=== PATIENT | male | born 2005 | race Hispanic/Latino ===

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

== ENCOUNTER 2024-11-28 11:56 | Emergency (ER) | payer OTHER, SELFPAY ==
--- NOTE | ~2024-11-28 | XR_ITS ---
XR ankle RT min 3V, XR foot RT min 3V 11/28/2024 12:48 Indication: Right foot and ankle pain after basketball injury Procedure: 4 views right ankle and 4 views right foot Comparison: No prior studies for comparison. Findings: There is anatomic alignment. No fracture, subluxation or dislocation. No soft tissue abnormality. No foreign bodies. Impression: 1: No acute bone or joint abnormality. Reviewed, dictated and finalized at location O. Impression: 1: No acute bone or joint abnormality. Impression: 1: No acute bone or joint abnormality.
[2024-11-28 12:24] VITALS: BP 125/60; PULSE 72; RESP 18; TEMP 36.6; O2SAT 100
--- NOTE | 2024-11-28 13:26 | ED.GENADULT ---
HPI - General Adult General Chief complaint: Extremity Injury, Lower Stated complaint: right foot/ankle injury Source: patient Mode of arrival: ambulatory Limitations: no limitations History of Present Illness HPI narrative: Patient presents for evaluation of right foot and ankle pain. Symptom onset yesterday. He was brought basketball and twisted his ankle when coming down from jumping. He now has 10/10 pain in the right ankle and foot. He states the pain is sharp. Has some numbness and tingling in the right ankle. He tried taking ibuprofen 800 mg for his symptoms for his symptoms. Related Data Home Medications ?Medication ?Instructions ?Recorded ?Confirmed ?Last Taken ?Type clobazam 10 mg tablet mg 05/25/22 Unknown History clonazepam 1 mg disintegrating mg 05/25/22 Unknown History tablet zonisamide 100 mg capsule mg PO 11/28/24 Unknown History Allergies Allergy/AdvReac Type Severity Reaction Status Date / Time No Known Allergies Allergy Verified 11/28/24 12:36 Review of Systems Review of Systems: CONSTITUTIONAL: Denies fever, chills, or sweats. EYES: Denies visual changes, redness, or discharge. ENT: Denies rhinorrhea, congestion, sore throat, or otalgia. CARDIOVASCULAR: Denies chest pain, palpitations, or edema. RESPIRATORY: Denies cough or dyspnea. GASTROINTESTINAL: Denies abdominal pain, nausea, vomiting, or diarrhea. GENITOURINARY: Denies dysuria or hematuria. SKIN: Denies rash or itching. MUSCULOSKELETAL: Reports pain and swelling in the right foot and ankle NEUROLOGIC: Reports numbness and tingling in the right ankle PSYCHIATRIC: Denies anxiety or depression. [facility] Past Medical History Medical History No pertinent past medical history Surgical History Surgical History No pertinent past surgical history Family History Family History Mother Family history non-contributory Social History Social History Gender identity (if verbalized by the patient): Male Spiritual care concerns: No Exam Narrative: GENERAL: Well-appearing, well-nourished, and in no acute distress. HEAD: Normocephalic, atraumatic. EYES: PERRLA and EOMI. ENT: Nares clear, no rhinorrhea or epistaxis. Mucous membranes moist. Oropharynx without tonsillar hypertrophy exudate or other lesions. Bilateral TMs pearly liu nonbulging NECK: Supple. No adenopathy or masses. No carotid bruits or JVD CHEST: Clear to auscultation. No respiratory distress. No wheezes rales or rhonchi HEART: Regular rate and rhythm. No murmur heard. Normal peripheral pulses. ABDOMEN: Soft, nontender, nondistended, normal active bowel sounds. EXTREMITIES: There is swelling noted over the right lateral ankle. Decreased dorsi and plantar flexion secondary to pain. There is tenderness over the lateral aspect of the right ankle, in dorsal aspect of proximal right foot and throughout the right great toe SKIN: Warm, dry, no rash. NEURO: No focal deficits. Alert and oriented x3. PSYCH: Normal mood and affect. Course Course Emergency Course: Is a 19-year-old male who presented for evaluation of right foot and ankle pain/swelling. X-rays negative for fracture. Exam consistent with sprain. Provided with Delvis wrap and crutches. Recommended he purchase an Aircast boot. NSAIDs for pain. Advised on RICE therapy. Follow-up with primary provider. Go to the ER for worsening symptoms. Patient in agreement with plan of care. Level of Care: Express Care Visit Vital Signs Vital signs: Vital Signs Temperature 36.6 C 11/28/24 12:24 Pulse Rate 72 11/28/24 12:24 Respiratory Rate 18 11/28/24 12:24 Blood Pressure 125/60 11/28/24 12:24 Pulse Oximetry 100 11/28/24 12:24 Oxygen Delivery Room Air 11/28/24 12:24 Temperature 36.6 C 11/28/24 12:24 Pulse Rate 72 11/28/24 12:24 Respiratory Rate 18 11/28/24 12:24 Blood Pressure 125/60 11/28/24 12:24 Pulse Oximetry 100 11/28/24 12:24 Oxygen Delivery Room Air 11/28/24 12:24 Medical Decision Making Vital Signs Vital Signs: Vital Signs Temperature 36.6 C 11/28/24 12:24 Pulse Rate 72 11/28/24 12:24 Respiratory Rate 18 11/28/24 12:24 Blood Pressure 125/60 11/28/24 12:24 Pulse Oximetry 100 11/28/24 12:24 Oxygen Delivery Room Air 11/28/24 12:24 Temperature 36.6 C 11/28/24 12:24 Pulse Rate 72 11/28/24 12:24 Respiratory Rate 18 11/28/24 12:24 Blood Pressure 125/60 11/28/24 12:24 Pulse Oximetry 100 11/28/24 12:24 Oxygen Delivery Room Air 11/28/24 12:24 Imaging Data Radiologist's impression: XR ankle RT min 3V, XR foot RT min 3V 11/28/2024 12:48 Indication: Right foot and ankle pain after basketball injury Procedure: 4 views right ankle and 4 views right foot Comparison: No prior studies for comparison. Findings: There is anatomic alignment. No fracture, subluxation or dislocation. No soft tissue abnormality. No foreign bodies. Impression: 1: No acute bone or joint abnormality. XR ankle RT min 3V, XR foot RT min 3V 11/28/2024 12:48 Indication: Right foot and ankle pain after basketball injury Procedure: 4 views right ankle and 4 views right foot Comparison: No prior studies for comparison. Findings: There is anatomic alignment. No fracture, subluxation or dislocation. No soft tissue abnormality. No foreign bodies. Impression: 1: No acute bone or joint abnormality. Discharge Plan Discharge Clinical Impression: Right ankle sprain Instructions: Antibiotic Form, Ankle Sprain (ED) Patient Language: Bengali Prescriptions: New ibuprofen 800 mg tablet 800 mg PO TID PRN (Reason: pain) Qty: 30 0RF No Action clonazepam 1 mg tablet,disintegrating clobazam 10 mg tablet zonisamide 100 mg capsule PO Follow-up/Referrals: Scotty Schmid MD [Physician, Family Practice] Time of Disposition: 13:09
--- OUTSIDE RECORDS SUMMARY | 2024-11-28 14:46 | XMS_ITS | Clinical Summary ---
Author Organization [facility] Address [address] [place] [address] Care Team Providers Care Interactive Developer Name Role Phone Koffi Evans MD Primary Care Provider + [phone] Source Comments [facility],non-owned Affiliates and Associated Physician Practices is amultiple site organization consisting of ambulatory clinics and hospital sitesin [place], [place], [place] and [place]. This disclosure is being madepursuant to the Care Everywhere program and may not contain all information available regarding this patient. Last updated 17.[facility] Allergies No known active allergies Medications * Be aware that medications may not be up to date on this document. Alwaysverify current medications with the patient. diazePAM (Valtoco) 5 MG/0.1ML nasal spray Kiefer 0.1 mL into the nose as needed for Seizures (lasting greater than 5 minutes) 1 Each 1 12/19/2021 Active clonazePAM, disintegrating, (KlonoPIN Wafer) 1 MG tablet Take 1 (one) tablet by mouth 2 times daily as needed (for 2 seizures in 24 hours) 6 tablet 02/16/2022 Active cloBAZam (Onfi) 10 MG tablet Take 5 mg by mouth in the morning & 10 mg in the evening 45 tablet 09/15/2022 Active Active Problems Problem Noted Date Diagnosed Date Fracture of radial neck 02/23/2014 Closed fracture of ulna Atypical absence epilepsy Generalized convulsive epilepsy Social History Tobacco Use Types Packs/Day Years Used Date Smoking Tobacco: Never Passive Smoke Exposure: Never Smokeless Tobacco: Never Tobacco Cessation:Counseling Given: Not Answered Alcohol Use Standard Drinks/Week Comments No 0 (1 standard drink = 0.6 oz pur e alcohol) AUDIT-C Answer Date Recorded Q1: How often do you have a drink containing alcohol? Never 01/29/2022 Q2: How many drinks containi ng alcohol do you have on a typical day when you are drinking? Patient does not drink Q3: How often do you have si x or more drinks on one occasion? 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 Gender Identity Not on file Sexual Orientation Not on file Last Filed Vital Signs Vital Sign Reading Time Taken Comments Blood Pressure 130/58 02/16/2022 10:50 AM WIRE MESH GATE ASSEMBLER Pulse 82 01/29/2022 10:04 PM WIRE MESH GATE ASSEMBLER Temperature 36.8 C (98.3 F) 01/29/2022 10:04 PM WIRE MESH GATE ASSEMBLER Respiratory Rate 16 01/29/2022 10:04 PM WIRE MESH GATE ASSEMBLER Oxygen Saturation 97% 01/29/2022 10:04 PM WIRE MESH GATE ASSEMBLER Inhaled Oxygen Concentration - - Weight 92.6 kg (204 lb 2.3 oz) 02/16/2022 10:50 AM WIRE MESH GATE ASSEMBLER Height 178.7 cm (5' 10.35) 02/16/2022 10:50 AM WIRE MESH GATE ASSEMBLER Body Mass Index 29 02/16/2022 10:50 AM WIRE MESH GATE ASSEMBLER Plan of Treatment Health Maintenance Due Date Last Done Comments HIV SCREENING 2018 HPV VACCINE (1 - Male 3-dose series) 2018 MENINGOCOCCAL (Group B) VACCINE SHARED DECISION-MAKING (1 of 2 - Standard) 2019 HEPATITIS C SCREENING 03/30/2021 DTAP/TDAP/TD VACCINES (1 - Tdap) 2022 HEPATITIS B VACCINE (1 of 3 - 19+ 3-dose series) 2022 DEPRESSION SCREENING 02/09/2024 COVID-19 VACCINE (3 2024-2 6 season) 2024 08/09/2020, 07/11/2020 INFLUENZA VACCINE (#1) 2024 ZOSTER VACCINE (1 of 2) 2053 HIB VACCINE Aged Out No longer eligi ble based on patient's age to complete this topic MENINGOCOCCAL GROUPS A/C/Y/W VACCINE Aged Out No longer eligible b ased on patient's age to complete this topic PNEUMOCOCCAL VACCINE Aged Out No long er eligible based on patient's age to complete this topic Insurance [facility] Care Teams Interactive Developer Relationship Specialty Start Date End Date Koffi Evans MD [address] [place] [id number] PCP - General 02/13/22
--- OUTSIDE RECORDS SUMMARY | 2024-11-28 14:47 | XMS_ITS | Encounter Summary ---
Author Organization [facility] Address [address] [place] [address] Care Team Providers Care Public Service Representative Name Role Phone PeterVishalfrancois CUEVAS Primary Care Provider [phone] Encounter Details Date Type Department Care Team (Late st Contact Info) Description 10/12/2024 Results Follow-Up [facility] at [address] [place] [address] Lauren Minaya MD [address] [place] [address] [address] DOU[address], [facility] [address] [place] [address] Hepatitis C antibody Blood Social History Tobacco Use Types Packs/Day Years Used Date Smoking Tobacco: Every Day Vaping Smokeless Tobacco: Never Comments:Smokes marijuana Alcohol Use Standard Drinks/Week Comments Yes 0 (1 standard drink = 0.6 oz pur e alcohol) PHQ-2 Answer Date Recorded PHQ-2 Total Score (If total score is 3 or more points, staff should administer the PHQ-9) 0 10/10/2024 AUDIT-C Answer Date Recorded Q1: How often do you have a drink containing alc ohol? Monthly or less 10/10/2024 Q2: How many drinks containi ng alcohol do you have on a typical day when you are drinking? 3 or 4 10/10/2024 Q3: How often do you have si x or more drinks on one occasion? Never 10/10/2024 Hunger Vital Sign Answer Date Recorded Within the past 12 months, y ou worried that your food would run out before you got the money to buy more. Never true 09/27/19 25 Within the past 12 months, t he food you bought just didn't last and you didn't have money to get more. Never true 09/26/2024 Personal Safety Answer Date Recorded Have you ever been in or are you currently in a harmful physical or emotional relationship or is someone making you feel afraid or unsafe? 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 Called back and the person on the other end sat on the phone until I voiced that this is the doctors office looking for [place] and then the pt's grandpa laughed and stated oh that's who it is and I proceeded to give Terry the pt's results and ended the call. * Telephone Encounter - Mehreen Smith MA - 10/12/2024 8:28 AM CDT Unable to call pt due to number not being available, will f/u at a later time. documented in this encounter Plan of Treatment Not on file documented as of this encounter Visit Diagnoses Not on filedocumented in this encounter Care Teams Public Service Representative Relationship Specialty Start Date End Date Josephine Green NP PCP - General Family Medicine 09/25/22 documented as of this encounter
--- OUTSIDE RECORDS SUMMARY | 2024-11-28 14:48 | XMS_ITS | Clinical Summary ---
Author Organization [facility] Address [address] [place] [address] Phone Care Team Providers Care Clipper Operator Name Role Phone Josephine Prescott Primary Care Provider + [phone] Allergies No known active allergies Medications diazePAM 20 MG Gel 20 mg by Rectal route. 08/17/2017 Active cloBAZam (ONFI) 10 MG Tablet Take 5 mg by mouth 2 times daily. 12/19/2021 Active naproxen (NAPROSYN) 500 MG Tablet Take 1 Tablet by mouth 2 times daily as needed for Moderate or more severe pain. 20 Tablet 01/01/2023 Active Active Problems No known active problems Social History Tobacco Use Types Packs/Day Years Used Date Smoking Tobacco: Never Smokeless Tobacco: Never Tobacco Cessation:Counseling Given: Not Answered Sex and Gender Information Value Date Recorded Sex Assigned at Not on file Legal Sex Male 5:42 PM CDT Gender Identity Not on file Sexual Orientation Not on file Last Filed Vital Signs Vital Sign Reading Time Taken Comments Blood Pressure 131/70 01/01/2023 3:23 PM PROFESSIONAL NURSING TUTOR Pulse 97 01/01/2023 3:23 PM PROFESSIONAL NURSING TUTOR Temperature 37.1 C (98.7 F) 01/01/2023 3:23 PM PROFESSIONAL NURSING TUTOR Respiratory Rate 16 01/01/2023 5:38 PM PROFESSIONAL NURSING TUTOR Oxygen Saturation 96% 01/01/2023 3:23 PM PROFESSIONAL NURSING TUTOR Inhaled Oxygen Concentration - - Weight 101.7 kg (224 lb 3.3 oz) 01/01/2023 3:23 PM PROFESSIONAL NURSING TUTOR Height 180.3 cm (5' 11) 01/01/2023 3:23 PM PROFESSIONAL NURSING TUTOR Body Mass Index 31.27 01/01/2023 3:23 PM PROFESSIONAL NURSING TUTOR Plan of Treatment Health Maintenance Due Date Last Done Comments Hepatitis C Virus (HCV) Screening 2003 Meningococcal B Immunization (1 of 2 - Standard) 2019 Influenza Immunization (#1) 2024 SARS-COV-2 Immunization (3 - 2024- season) 2024 08/09/2020, 07/11/2020 Respiratory Syncytial Virus (RSV) Immunization (Adult) (1 - 1-dose 75+ series) 2078 Hepatitis B Immunization Completed 006, 02/03/2006, 2003, Additional history exists Hepatitis A Immunization Discontinued 10/20/2006, 01/09 Measles Mumps Rubella (MMR) Immunization Discontinued 08/23/2007, 02/03/2006, 02/03/2006, Additional history exists Pneumococcal Immunization Combined Completed 08/23/2007, 08/23/2007, 02/03/2006, Additional history exists Polio (IPV) Immunization Discontinued 008, 02/03/2006, 2003, Additional history exists Varicella Immunization Discontinued 8, 02/03/2006, 02/03/2006, Additional history exists DTaP/Tdap/Td Immunization Discontinued 2013, 08/23/2007, 02/03/2006, Additional history exists TdaP Immunization Completed 06/15/2013 Meningococcal Immunization (ACWY) Aged Out 10/02/2014 No longer eligible based on patient's age to complete this topic Human Papillomavirus (HPV) Immunization Completed 09/28/2017, 10/16/2014 Rotavirus Immunization Aged Out No lo nger eligible based on patient's age to complete this topic Insurance MEDICAID [facility] MEDICAID [facility] [employer] Care Teams Clipper Operator Relationship Specialty Start Date End Date Josephine Prescott, [facility] [address] [place] [address] PCP - General Hematology 01/01/23
--- OUTSIDE RECORDS SUMMARY | 2024-11-28 14:48 | XMS_ITS | Clinical Summary ---
Author Organization [facility] Address [address] [place] [address] Care Team Providers Care Trucker Hand Name Role Phone PeterJosephine FAITH Primary Care Provider [phone] Allergies No known active allergies Medications diazePAM 5 mg/spray (0.1 mL) spray,non-aerosol Administer 5 mg into one nostril as needed (seizure longer than 5 minutes or 2 seizures back to back) Take if having a seizure longer than 5 minutes or 2 seizures back to back. 2 each Active ondansetron ODT (ZOFRAN-ODT) 4 mg disintegrating tabletIndications :Vomiting, unspecified vomiting type, unspecified whether nausea present Take 1 tablet (4 mg total) by mouth every 8 (eight) hours as needed for nausea or vomiting 20 tablet Active azelastine (ASTELIN) 137 mcg (0.1 %) nasal sprayIndications: Acute URI Administer 1 spray into each nostril 2 (two) times a day Use in each nostril as directed 30 mL 024 Active zonisamide (ZONEGRAN) 100 mg capsuleIndication s:Partial Epilepsy Treatment Adjunct Take 2 capsules (200 mg total) by mouth 2 (two) times a day 120 capsule 11 024 2024 Active cloBAZam (ONFI) 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 Take 2.5 tablets (25 mg total) by mouth nightly 75 tablet 3 025 2024 Discontinued(D uplicate order) Active Problems Problem Noted Date Diagnosed Date Seizure 03/09/2023 Nonintractable epilepsy without status epileptic us 09/25/2022 Assessment & Plan (10/10/2024 4:00 PM CDT): Chonic condition Follows neurology Last seizure episode 09/10/2024 Currently on Onfi and zonisamide Plan Discussed need to contact community mental health social worker to help with disability forms Follow up with Neurology Assessment & Plan (02/15/2023 10:31 AM HOME HEALTH NURSE): Stable; last seizure approx 01/18 Girlfriend stated that it was mild Following with Neurology; going well; next appt April Continue Clobazam 10 mg bid and Diazepam as needed Follow up in September Assessment & Plan (11/13/2022 10:08 AM CDT): Patient continues to have seizures; most recent this past Wednesday Typical recovery within 10-15 minutes after seizure Referral for Dr. MIL santoro as they could not get into the OR neurologist until December Continue clobazam 20 mg daily and diazepam as needed Assessment & Plan (10/15/2022 4:07 PM CDT): Patient continues to have seizures; 1 that occurred today prior to presentation; symptoms consistent with seizure with blackout phase, as well as postictal phase Usually recovers within 10 50 minutes after seizure Symptoms worse with lack of sleep and high stress Patient follows with Neurology; however needs new referral given recently aged out of pediatric Neurology Referral to Neurology placed Increase clonazepam to 20 mg daily; continue diazepam p.r.n. Right foot sprain, initial encounter 08/21/2019 Sprain of anterior talofibular ligament of right ankle 08/21/2019 Encounters Date Type Department Care Team Description 10/13/2024 Orders Only [facility] [address] [place] [address] 4th [address] [place] [id number] Pavithra Watts MD Nonintractable epilepsy without status epilepticus, unspecified epilepsy type (HCC) 10/12/2024 Results Follow-Up [facility] at [address] [phone] Lauren Minaya MD Hepatitis C antibody Blood 10/10/2024 2:20 PM CDT Lab [address] Need for hepatitis C screening test 10/10/2024 1:00 PM CDT Office Visit [facility] at [address] [phone] Lauren Minaya MD Nonintractable epilepsy without status epilepticus, unspecified epilepsy type (HCC) (Primary Dx); Need for hepatitis C screening test; Need for vaccination 09/28/2024 Telephone [facility] [address] [address] Josephine Green NP Appointment Request 09/26/2024 10:30 AM CDT [facility] [address] [place] [address] 4[address] [place] [phone] Pavithra Watts MD Nonintractable epilepsy without status epilepticus, unspecified epilepsy type (HCC) (Primary Dx) from Last 3 Months Immunizations Immunization Administration Dates Next Due DTaP 08/23/2007, 6,2003,2003, 2003 HPV9 09/28/2017,10/16/2014 Hep A, Ped Unspecified 08/23/2007 Hep A, Pediatric 10/20/2006,02/03/2006 Hep B / HiB 02/03/2006 Hep B, Adolescent or Pediatric 02/03/2006,2003,2003,2003 HiB 2003,2003 Hib (PRP-T) 02/03/2006,08/05/2005,2003 ,2003 IPV 08/23/2007,02/03/2006,2003 ,2003 Influenza, Unspecified 12/10/2022(Deferr ed: Patient Refused),11/13/2022(Deferred: Patient Refused),09/25/2022(Deferred: Patient Refused),11/08/2021(Deferred: Patient Refused),10/09/2021(Deferred: Patient Refused),10/09/2021(Deferred: Patient Refused) MMR 08/23/2007,02/03/2006,04/07/2004 MMRV 02/03/2006 Meningococcal B, OMV (Bexsero) 10/10/2024 Meningococcal MCV4P (Menactra) 10/02/2014 Pneumococcal Conjugate 7-Valent 08/23/2007,02/03,2003 Pneumococcal Conjugate PCV 13 08/23/2007, 006,2003 Polio, Unspecified 08/23/2007 Tdap 10/10/2024,06/15/2013 Varicella 08/23/2007,02/03/2006,04/07/2004 Medical History Medical History Date Comments Seizures (HCC) Family History Medical History Relation Name Comments No Known Problems Father Arthritis Maternal Grandfather Diabetes Mother Relation Name Status Comments Father Maternal Grandfather Alive Mother Alive Social History Tobacco Use Types Packs/Day Years Used Date Smoking Tobacco: Every Day Vaping Smokeless Tobacco: Never Tobacco Cessation:Ready to Q uit: Not Asked; Counseling Given: Not Answered Comments:Smokes marijuana Alcohol Use Standard Drinks/Week Comments [...] on file Legal Sex Male 12:54 PM HOME HEALTH NURSE Gender Identity Not on file Sexual Orientation Not on file Obstetrics History Last Filed Vital Signs Vital Sign Reading Time Taken Comments Blood Pressure 108/66 10/10/2024 1:02 PM CDT Pulse 64 10/10/2024 1:02 PM CDT Temperature 36.1 C (97 F) 09/26/2024 10:38 AM CDT Respiratory Rate 16 10/10/2024 1:02 PM CDT Oxygen Saturation 97% 10/10/2024 1:02 PM CDT Inhaled Oxygen Concentration - - Weight 102.4 kg (225 lb 12.8 oz) 10/10/2024 1:02 PM CDT Height 182.9 cm (6' 0.01) 10/10/2024 1:02 PM CD T Body Mass Index 30.62 10/10/2024 1:02 PM CDT Plan of Treatment Health Maintenance Due Date Last Done Comments Pneumococcal vaccine <65 (1 of 1 - PPSV23, PCV20, or PCV21) 2009 08/23/2007, 08/23/2007, 02/03/2006, Additional history exists Regular Well Visit/Exam 18-64 09/26/2023 09/25/2022 Covid-19 Vaccine (3 - 2024- season) 2024 08/09/2020, 07/11/2020 Influenza Vaccine (#1) 2024 Meningococcal B Vaccine (2 of 2 - Bexsero SCDM 2-dose series) 04/09/2025 10/10/2024 Depression Screening 10/10/2025 10/10/2024, 02/15/2023, 11/13/2022, Additional history exists DTaP/Tdap/Td Vaccine (8 - Td or Tdap) 10/10/2034 10/10/2024, 06/15/2013, 08/23/2007, Additional history exists Hepatitis B Screening Completed 02/03/2006 , 02/03/2006, 2003, Additional history exists Varicella Vaccines Completed 08/23/2007, 1 04/06/2005, 02/03/2006, Additional history exists Meningococcal Vaccine Aged Out 10/02/2014 No shamir jair eligible based on patient's age to complete this topic HPV Vaccines Completed 09/28/2017, 10/16/2014 Hepatitis C Screening Completed 10/10/2024 Procedures Procedure Name Priority Date/Time Associated Diagnosis Comments HEPATITIS C ANTIBODY Routine 10/10/2024 2:20 PM CDT Need for hepatitis C screening test from Last 3 Months Results * Hepatitis C antibody Blood (10/10/2024 2:20 PM CDT) Hep C Ab Nonreactive Nonreactive Comment: Interpretive Data Nonreactive: Antibodies to HCV not detected. Does NOT exclude the possibility of recent exposure to HCV. Equivocal: Equivocal for HCV antibodies. Supplemental molecular testing will be automatically performed to determine infection status in accordance with current CDC screening recommendations. Reactive: Positive for HCV antibodies. This may represent current or past HCV infection. Supplemental molecular testing will be automatically performed to determine current infection status in accordance with current CDC screening recommendations. Interpretive data was last revised on 2019. Testing performed by: [facility], [address] [place] [address]., [id number] Blood 10/10/2024 2:20 PM CDT 10/11/2024 9:37 AM CDT us Lauren Minaya MD LAB MICROBIOLOGY - GENERA L ORDERABLES Final Result [facility] Department [place] [address] from Last 3 Months Insurance [facility] Advance Directives For more information, please contact: [phone] * Full Code (Latest Code Status on File) Date Activated Date Inactivated Comments 03/09/2023 9:11 AM 03/13/2023 8:00 PM Care Teams Trucker Hand Relationship Specialty Start Date End Date Josephine Green NP PCP - General Family Medicine 09/25/22
== END 2024-11-28 13:14 | disposition home or self-care (01) ==
PROVIDERS: Emergency Provider Nurse Practitioner
DX: S93.401A Sprain of unspecified ligament of right ankle, initial encounter (principal); X50.0XXA Overexertion from strenuous movement or load, initial encounter; Y93.67 Activity, basketball
CPT/HCPCS: 73610; 73630; 99213; G0463